=== PATIENT | male | born 2000 | race Hispanic/Latino ===

== ENCOUNTER 2022-02-03 23:13 | Observation (INO) | payer BC, MEDICAID ==
[~2022-02-03] VITALS: Ht 188 cm; Wt 106.6 kg
[2022-02-03] MEDS ORDERED: 0.9%NACL 1000ML 1,000 ML IV ONE (23:30)
[2022-02-03] MEDS ORDERED: ONDANSETRON 4MG INJ IVP ONE (23:30)
[2022-02-03] MEDS ORDERED: MORPHINE 4 MG SYG IVP ONE (23:30)
[2022-02-03 23:45] LABS: BASOPHILS % (AUTO) 0.2 % (0.0-5.0); EOSINOPHILS % (AUTO) 0.1 % (0.0-8.0); HEMATOCRIT 42.6 % (42-54); LYMPHOCYTES % (AUTO) 6.1 % (21.0-51.0); MEAN CORPUSCULAR HEMOGLOBIN 29.7 pg (27.0-33.0); MEAN CORPUSCULAR HGB CONC 36.4 g/dL (32.0-36.0); MEAN CORPUSCULAR VOLUME 81.6 fL (79-99); MONOCYTES % (AUTO) 6.9 % (3.0-13.0); NEUTROPHILS % (AUTO) 86.3 % (40.0-77.0); PLATELET COUNT (AUTO) 260 K/uL (130-400); RED BLOOD CELL COUNT(AUTO) 5.22 MIL/uL (4.50-6.20); RED CELL DISTRIBUTION WIDTH 12.1 % (11.0-15.5); WHITE BLOOD COUNT (AUTO) 14.7 K/uL (4.8-10.8)
[2022-02-03 23:59] LABS: CREATININE 1.2 mg/dL (0.5-1.5); POTASSIUM 4.1 mmol/L (3.5-5.1)
[2022-02-04] VITALS (23 sets, daily range): BP systolic 108–136; BP diastolic 52–78
[2022-02-04] MEDS ORDERED: CEFAZOLIN SODIUM 2 GM VIAL IV ONE
[2022-02-04 00:04] LABS: ALBUMIN 4.3 g/dL (3.5-5.0); BILIRUBIN,TOTAL 0.7 mg/dL (0.2-1.0); TOTAL PROTEIN, SERUM 7.8 g/dL (6.0-8.3)
[2022-02-04] MEDS ORDERED: ONDANSETRON 4MG INJ IV PRN (01:30)
[2022-02-04] MEDS ORDERED: ZOSYN 3.375GM +NS 50ML IV SCH (01:30)
[2022-02-04] MEDS ORDERED: MORPHINE 4 MG SYG IV PRN (01:30)
[2022-02-04] MEDS: 0.9%NACL 1000ML 1,000 ML IV SCH ×3 (01:52→21:30)
[2022-02-04] MEDS: ZOSYN 3.375GM+NS 50ML 50 ML IV SCH ×3 (09:49→21:18)
[2022-02-04 10:51] LABS: APPEARANCE,URINE CLEAR (CLEAR); BILIRUBIN,URINE NEGATIVE (NEGATIVE); COLOR,URINE YELLOW (YELLOW); GLUCOSE, URINE (UA) NEGATIVE (NEGATIVE); KETONES,URINE NEGATIVE (NEGATIVE); LEUKOCYTE ESTERASE ,URINE NEGATIVE (NEGATIVE); NITRATE,URINE NEGATIVE (NEGATIVE); OCCULT BLOOD,URINE NEGATIVE (NEGATIVE); PROTEIN,URINE NEGATIVE (NEGATIVE); UROBILINOGEN,URINE 0.2 mg/dL (0.2-1.0)
[2022-02-04] MEDS ORDERED: BUPIVACAINE/PF 0.5% 30ML VIAL ONE (11:10)
[2022-02-04] MEDS ORDERED: LIDOCAINE PF 100MG/5ML (2%) SYRINGE 5ML ONE ×2 (11:28→11:32)
[2022-02-04] MEDS ORDERED: DEXAMETHASONE SOD PHOSPHATE 10MG/ML 1ML VIAL ONE (11:28)
[2022-02-04] MEDS ORDERED: SUCCINYLCHOLINE CHLORIDE 20 MG/ML 10 ML VIAL ONE (11:28)
[2022-02-04] MEDS ORDERED: GLYCOPYRROLATE 1 MG/5 ML SYRINGE ONE (11:29)
[2022-02-04] MEDS ORDERED: NEOSTIGMINE 5MG/5ML SYR IV ONE (11:29)
[2022-02-04] MEDS ORDERED: MIDAZOLAM HCL 1 MG/ML 2ML VIAL ONE (11:29)
[2022-02-04] MEDS ORDERED: ONDANSETRON 4MG INJ ONE (11:29)
[2022-02-04] MEDS ORDERED: ROCURONIUM 10MG/1ML SYR 10 MG/ML ML ONE (11:29)
[2022-02-04] MEDS ORDERED: FENTANYL CITRATE PF 50 MCG/1 ML 2ML VIAL ONE (11:30)
[2022-02-04] MEDS ORDERED: PROPOFOL 10 MG/ML 20ML VIAL IV ONE (11:32)
[2022-02-04] MEDS ORDERED: MEPERIDINE-PF 25 MG/ML SYG ONE (11:58)
[2022-02-04] MEDS ORDERED: BUPIVACAINE/PF 0.25% 50ML VIAL IJ ONE ×2 (12:03)
[2022-02-04] MEDS ORDERED: SUGAMMADEX SODIUM 200 MG/2 ML VIAL IV ONE (12:22)
[2022-02-04] MEDS: MEPERIDINE-PF 25 MG/ML SYG IV PRN (21:12)
[2022-02-05] MEDS: MEPERIDINE-PF 25 MG/ML SYG IV PRN (02:00)
[2022-02-05 04:15] VITALS: BP 125/56
[2022-02-05] MEDS: ZOSYN 3.375GM+NS 50ML 50 ML IV SCH (04:43)
[2022-02-05 07:10] LABS: CREATININE 1.1 mg/dL (0.5-1.5); POTASSIUM 3.7 mmol/L (3.5-5.1)
[2022-02-05 07:28] LABS: BASOPHILS % (AUTO) 0.5 % (0.0-5.0); EOSINOPHILS % (AUTO) 1.4 % (0.0-8.0); HEMATOCRIT 38.2 % (42-54); LYMPHOCYTES % (AUTO) 22.6 % (21.0-51.0); MEAN CORPUSCULAR HEMOGLOBIN 29.3 pg (27.0-33.0); MEAN CORPUSCULAR HGB CONC 35.3 g/dL (32.0-36.0); MEAN CORPUSCULAR VOLUME 82.9 fL (79-99); MONOCYTES % (AUTO) 7.9 % (3.0-13.0); NEUTROPHILS % (AUTO) 67.3 % (40.0-77.0); PLATELET COUNT (AUTO) 247 K/uL (130-400); RED BLOOD CELL COUNT(AUTO) 4.61 MIL/uL (4.50-6.20); RED CELL DISTRIBUTION WIDTH 12.5 % (11.0-15.5); WHITE BLOOD COUNT (AUTO) 10.1 K/uL (4.8-10.8)
[2022-02-05 07:30] VITALS: BP 135/70
[2022-02-05] MEDS ORDERED: IBUP-2070 PO (09:36)
[2022-02-05 11:00] VITALS: BP 124/57
== END 2022-02-05 12:40 | disposition home or self-care (01) ==
LOC: EDH 23:13 → EDHIP 02-04 01:24 → INTOOBSV 02-04 01:24 → 3CH 02-04 13:38
PROVIDERS: ADMIT Hospitalist; ATTEND Hospitalist
DX: K35.80 Unspecified acute appendicitis (principal); Z20.822 Contact with and (suspected) exposure to COVID-19; E66.9 Obesity, unspecified
CPT/HCPCS: 36415 ×2; 44970; 74176; 80048; 80053; 81003; 83690; 83735; 85025 ×2; 87635; 96365; 96366 ×2; 96375 ×2; 96376; 99284; 99285; A4215; A4216; A4221; A4222; A4223 ×2; A4344; A4649 ×5; A6206; A6207; C1769 ×3; G0378 ×2; J0330; J1100; J2001 ×2; J2175 ×3; J2250; J2270 ×2; J2405 ×3; J2543 ×5; J2704; J2710; J3010; J3490 ×3; J7030 ×3; J0690